=== PATIENT | female | born 1950 | race Caucasian/White ===

== ENCOUNTER 2017-01-29 14:12 | Inpatient (IN) | payer OTHER ==
--- NOTE | ~2017-01-29 | CT113 ---
[facility] A Service [facility] RADIOLOGY TEXT RESULTS PATIENT: SERGIO DHILLON LOCATION: [facility] 224 : 52 UNIT #: [id number] AGE: [address]: Victor Manuel Begum MD SEX: F ORDER DR: [id number] [facility] [address] [facility]. [place], [place] [address] [id number] I MR#: [id number] Acc #: [id number] NAME: SERGIO DHILLON. : 1950 SEX: F STUDY DATE/TIME: 01/31/2017 12:50 UNIT: [facility] ROOM: [facility] STUDY DESCRIPTION: CT Sinuses Wo Contrast Attending Physician: Victor Manuel Begum M.D. Ordering Physician: Victor Manuel Begum M.D. Primary Care Physician: Santiago Zelaya M.D. MEDICAL IMAGING REPORT This report is preliminary unless electronic signature is present EXAM Sinus CT. HISTORY Shortness of breath the head congestion for the past 3 days. Sinusitis. TECHNIQUE Thin section axial images were obtained through the sinuses and evaluated at bone window with multiplanar reformats. FINDINGS Mucosal thickening is seen in the ethmoid air cells bilaterally. No sinus air fluid levels are seen. The other sinuses are clear. The ostiomeatal complex is narrowed or obstructed by the mucosal disease on both sides. There is a small Lupe cell on the right contributing to ostiomeatal narrowing. The septum deviates to the left. IMPRESSION Chronic ethmoid sinusitis with bilateral ostiomeatal obstruction as described above. Septal deviation to the left. No sinus air fluid levels are seen. Dictated by... Pepe Ta M.D. THIS IS AN ELECTRONICALLY VERIFIED REPORT Pepe Ta M.D. at 02/02/2017 11:00 AM RLF/dillon TD: 02/01/2017 10:22 JOB #: [id number] [facility] A Service [facility] RADIOLOGY TEXT RESULTS PATIENT: SERGIO DHILLON LOCATION: [facility] 224-01 : 52 UNIT #: [id number] AGE: [address]: Victor Manuel Begum MD SEX: F ORDER DR: MEDICAL IMAGING REPORT Page 1 of 1 COPY
--- NOTE | ~2017-01-29 | EKG ---
PATIENT: SERGIO DHILLON UNIT #: [id number] Ventricular Rate: 78 BPM Atrial Rate: 78 BPM P-R Interval: 180 ms QRS Duration: 76 ms Q-T Interval: 352 ms QTC Calculation(Bezet): 401 ms P Cresco: 47 degrees Calculated R Cresco: 59 degrees Calculated T Cresco: 63 degrees Diagnosis Line: Normal sinus rhythm Diagnosis Line: Low voltage QRS Poor R wave progression Diagnosis Line: questionable lead position or body habitus Diagnosis Line: Abnormal ECG Diagnosis Line: When compared with ECG of 30-SEP-2015 13:00, Diagnosis Line: No significant change was found Diagnosis Line: Confirmed by LISSET MARTELL MD ([id number]) on 02/01/2017 Diagnosis Line: 7:22:05 AM INTERPRETING MD: JAYSHREE SHOOK
--- NOTE | ~2017-01-29 | HP ---
Unit #: [id number] #: [id number] Patient: SERGIO DHILLON [id number] [facility]. [place], [place] [address] [id number] Gemini MR#: [id number] NAME: SERGIO DHILLON. ROOM: 224 Age: 67 Sex: F Admission Date: 01/29/2017 : 1950 Attending Physician: Victor Manuel Begum M.D. Primary Care Physician: Bryson Mcelroy M.D. HISTORY AND PHYSICAL HISTORY OF PRESENT ILLNESS Ms. Dhillon is a 67-year-old white female whom I have seen in the office with a history of asthma/COPD. She has been treated as an outpatient for exacerbation of COPD with inhaled bronchodilators and oral steroids and doxycycline. She states that over the last week she has had increased shortness of breath, wheezing, cough, fevers to 100 and chills. She has also had some mild epistaxis. She sometimes coughs so hard she throws up. She is unaware of any chest pain. She has had no hemoptysis. She presented to the emergency room with audible wheezing and use of accessory muscles and we were called to admit the patient. PAST MEDICAL HISTORY Her past medical history is significant for asthma, hypertension. She has had PFTs done in the office which I think reveal more of a restriction. She has no evidence of interstitial lung disease on chest CT scan. She has recently stopped smoking, two days ago. She is maintained on Chantix. She has a history of hypertension. She has a history of BHAVANI although she is noncompliant with CPAP. PAST SURGICAL HISTORY Appendectomy, knee arthroscopy, left hand surgery. FAMILY HISTORY Positive for hypertension. SOCIAL HISTORY As noted, stopped smoking two days ago, is maintained on Chantix, no alcohol or drug abuse. ALLERGIES None known. HOME MEDICINES 1. Advair 250/50. 2. Combivent. 3. Lisinopril. 4. Norvasc. 5. Flonase. REVIEW OF SYMPTOMS CONSTITUTIONAL: Has had fevers, chills. HEENT: Has had some rhinorrhea, nasal congestion. PULMONARY: As noted. Unit #: [id number] #: [id number] Patient: SERGIO DHILLON CARDIAC: No chest pain. GASTROINTESTINAL: Did have some vomiting, some nausea. GENITOURINARY: No hematuria or dysuria. ENDOCRINE: No polyuria or polydipsia. HEMATOLOGIC: No easy bruising or bleeding. SKIN: No rash. NEUROLOGIC: No unilateral weakness or numbness. Does have a history of obstructive sleep apnea, not on CPAP. PHYSICAL EXAMINATION GENERAL: White female, obese, no distress presently, does have audible wheezing. VITAL SIGNS: Blood pressure is 122/68. Pulse is 68. Respiratory rate 20. Afebrile. BMI is 33. Weight 192. HEENT: Normocephalic and atraumatic. Pupils equal, round and reactive. Sclerae nonicteric. Nasal passages patent. Posterior pharynx Mallampati IV. Dentures in place. NECK: Supple. Trachea midline. No cervical or supraclavicular lymphadenopathy. LUNGS: Reveal expiratory and inspiratory wheezes bilaterally. CARDIAC: Regular rate and rhythm. Could not appreciate murmur, rub or gallop. ABDOMEN: Nontender, bowel sounds present, no hepatosplenomegaly. EXTREMITIES: Without cyanosis, clubbing or edema. NEUROLOGIC: Awake, alert and oriented x3. Cranial nerves intact. Muscle strength symmetric bilaterally. Affect calm. SKIN: Warm and dry. DIAGNOSTIC STUDIES LABORATORY: Chemistry is reviewed, sodium 131, potassium 3.5, glucose 133. BNP is 9. Coags normal. White blood cell count 12,800 and hematocrit 43.5, platelet count normal. Influenza A and B negative. IMPRESSION 1. Acute exacerbation of chronic obstructive pulmonary disease, failure to respond to outpatient treatment. 2. Possible pneumonia with increased interstitial markings. I have reviewed the x-ray. It is certainly not very impressive. No evidence of congestive heart failure with normal BNP. 3. Tobacco abuse. 4. Hypertension. 5. Obstructive sleep apnea, noncompliant with CPAP. PLAN Will treat with inhaled bronchodilators, IV Solu-Medrol, cover with antibiotics for community-acquired pneumonia. Will recheck chest x-ray in the morning. Consider a viral panel and Strep and Legionella studies if chest x-ray actually reveals worsening infiltrates. I would also recommend and funeral pre arrangement counselor smoking cessation. Will need outpatient evaluation of obstructive sleep apnea again. Would recommend DVT prophylaxis. Further recommendations pending this. Dictated by Santiago Zelaya M.D. Unit #: [id number] #: [id number] Patient: SERGIO DHILLON B LPM/cf TD: 01/29/2017 19:12 JOB #: [id number] HISTORY AND PHYSICAL X Santiago Zelaya MD X HISTORY AND PHYSICAL
--- NOTE | ~2017-01-29 | DS ---
Unit #: [id number] #: [id number] Patient: SERGIO DHILLON [id number] [address] [id number] I MR#: [id number] NAME: SERGIO DHILLON. ROOM: 224 Age: 67 Sex: F Admission Date: 01/29/2017 : 1950 Discharge Date: 02/03/2017 Attending Physician: Victor Manuel Begum M.D. Primary Care Physician: Santiago Zelaya M.D. DISCHARGE SUMMARY DISCHARGE DIAGNOSES 1. Acute exacerbation chronic obstructive pulmonary disease. 2. Acute hypoxemic respiratory failure. 3. Upper respiratory infection with chronic sinusitis. 4. Tobacco abuse. 5. Obstructive sleep apnea, intolerant to CPAP. 6. Hypertension. DISCHARGE MEDICATIONS Neurontin 300 mg daily; BuSpar 15 mg b.i.d.; lisinopril 20 mg daily; Zithromax 500 daily for 4 days; ibuprofen 200 mg b.i.d. as needed; Chantix 1 mg b.i.d.; Combivent inhaler q.i.d.; Advair 250/50 one inhalation b.i.d.; prednisone 40 mg for four days, decreased by 10 mg every four days until off; Flonase 2 sprays each nostril daily; Afrin nasal spray b.i.d. as needed. Follow up in my office in 1 to 2 weeks. HOSPITAL COURSE A 67-year-old white female who was admitted with exacerbation of COPD/asthma exacerbation with failure to respond to outpatient treatment. On admission, her BMP was unremarkable, glucose was 133, sodium was 131. Procalcitonin was 0.05. BNP was 9. Coags were normal. [place] [address], hematocrit was 43.5, platelet count was normal. Influenza A and B were negative. Strep screen was negative. Chest x-ray was read by Radiology as showing normal heart with slightly increased interstitial markings compared to 10/30/2015. She was admitted and started on inhaled bronchodilators, IV Solu-Medrol, covered with antibiotics. It was really not thought, but there were significant infiltrates, but BNP was normal and procalcitonin was normal, so it was felt that this does not represent pneumonia or CHF. She responded to treatment with significant improvement in her wheezing. Her oxygenation improved. Ambulatory pulse oximetry prior to discharge showed no desaturations less than 90%. She will be discharged home on the above-mentioned medications. Follow up in the office in 1 week. She did have a sinus x-rays done due to nasal congestion. There was chronic ethmoid sinusitis with bilateral ostiomeatal obstruction. Septal deviation to the left, no air-fluid levels were seen. She was treated with Afrin and Flonase with improvement. Dictated by... Santiago Zelaya M.D. CHELSEY/kiarra Unit #: [id number] #: [id number] Patient: SERGIO DHILLON Dragan TD: 02/04/2017 05:46 JOB #: [id number] DISCHARGE SUMMARY Page 1 of 1 X Santiago Zelaya MD X DISCHARGE SUMMARY
--- NOTE | ~2017-01-29 | CR72 ---
[facility] A Service of [facility] & [facility] RADIOLOGY TEXT RESULTS PATIENT: SERGIO DHILLON LOCATION: [address] [place] [address] : 52 UNIT #: [id number] AGE: [address]: Victor Manuel Begum MD SEX: F ORDER DR: [id number] [facility] [address] [place], [place] [address] [id number] I MR#: [id number] Acc #: [id number] NAME: SERGIO DHILLON. : 1950 SEX: F STUDY DATE/TIME: 01/29/2017 12:43 UNIT: [facility] ROOM: [id number] STUDY DESCRIPTION: CR Chest Single View Portable Attending Physician: Victor Manuel Begum M.D. Ordering Physician: Nichelle Beebe M.D. Primary Care Physician: Bryson Mcelroy M.D. MEDICAL IMAGING REPORT This report is preliminary unless electronic signature is present EXAM Chest, portable, 01/29/2017, 1243 hours. CLINICAL HISTORY 67-year-old with complaint of shortness of air for 1 week worsening over the past 3 days. Cough and congestion. COMPARISON CT chest 04/21/2016 and chest x-ray 09/30/2015. FINDINGS Portable upright chest demonstrates normal heart size with tortuous atherosclerotic aorta, previously demonstrated to be ectatic. Lungs are well expanded. There is increase in the interstitial markings diffusely representing a change from 09/30/2015. This could represent mild interstitial edema or interstitial pneumonitis. No effusions are seen. IMPRESSION Stable normal heart size with increase in interstitial markings in the lungs diffusely as compared to 09/30/2015. This could represent chronic interstitial change or fibrosis. Acute interstitial edema or interstitial pneumonitis cannot be excluded. There are no pleural effusions. Dictated by... Belén Ceja M.D. THIS IS AN ELECTRONICALLY VERIFIED REPORT Belén Ceja M.D. at 01/29/2017 6:17 PM SHAUN/dave TD: 01/29/2017 16:33 [facility] A Service of [facility] & [facility] RADIOLOGY TEXT RESULTS PATIENT: SERGIO DHILLON LOCATION: [place] [address] : 52 UNIT #: [id number] AGE: [address]: Victor Manuel Begum MD SEX: F ORDER DR: JOB #: [id number] MEDICAL IMAGING REPORT COPY
[2017-01-29 13:07] LABS: POC - CKMB <1.0 ng/mL (0.0-7.9); POC - TROPONIN <0.05 ng/mL (<=0.05)
[2017-01-29 13:17] LABS: BASOPHIL% 0.3 % (0-2.5); EOSINOPHIL# 0.2 X10e3 (0-0.7); EOSINOPHIL% 1.3 % (0.0-7.0); HEMATOCRIT 43.5 % (35.0-45.0); HEMOGLOBIN 14.4 gm/dL (12.0-16.0); LYMPHOCYTE# 2.6 X10e3 (1.0-3.5); LYMPHOCYTE% 20.1 % (17.0-45.0); MEAN CELL VOLUME 86.9 FL (83-96); MEAN CORPUSCULAR HEMOGLOBIN 28.7 PG (28-34); MEAN CORPUSCULAR HGB CONC 33.1 g/dL (30-36); MEAN PLATELET VOLUME 7.9 FL (6.5-11.5); MONOCYTE% 7.7 % (3.0-12.0); NEUTROPHIL% 70.6 % (40-75); PLATELET COUNT 272 X10e3 (140-420); RED CELL DISTRIBUTION WIDTH 14.8 % (11.0-15.5); WHITE BLOOD COUNT 12.8 X10e3 (4.0-10.5)
[2017-01-29 13:18] LABS: DIFF IND NO
[2017-01-29 13:28] LABS: INFLUENZA A NEG (NEG); INFLUENZA B NEG (NEG)
[2017-01-29 13:32] LABS: INR 0.9; PROTHROMBIN TIME (PATIENT) 9.7 SECONDS (9.6-11.5)
[2017-01-29 13:40] LABS: ALBUMIN SERUM 4.1 g/dL (3.5-5.0); ALKALINE PHOSPHATASE 66 U/L (32-92); ALT (SGPT) 16 U/L (10-40); AST (SGOT) 16 U/L (10-42); BILIRUBIN, DIRECT 0.2 mg/dL (0.0-0.2); BILIRUBIN,INDIRECT 0.8 mg/dL (0.0-0.9); BLOOD UREA NITROGEN 12 mg/dL (9-23); CARBON DIOXIDE 26 mmol/L (22-31); CHLORIDE 102 mmol/L (100-111); CREATININE SERUM 0.8 mg/dL (0.6-1.4); GLOM FILT RATE Estimated ABOVE60 mL/min (>60); GLUCOSE FASTING 133 mg/dL (70-110); POTASSIUM 3.5 mmol/L (3.5-5.1); PROTEIN TOTAL SERUM 7.3 g/dL (6.0-8.3); SODIUM 131 mmol/L (135-145)
[~2017-01-29 14:12] MED LIST: ACETAMINOPHEN PO; ADVAIR 250-501 EACH; ADVAIR 250-501 EACH IN; ADVAIR 2501 DISK W/D PO; ALBUTEROL MININEB NEB; ALBUTEROL17 GM INH; ALLEGRA PO; ALLERGY RELIEF10 M1 PO; AUGMENTIN PO; AUGMENTIN875 M1 PO; BACTRIM DS TABL1 TA1 PO; BENZONATATE PO; BUSPAR30 MG PO; BUSPIRONE HCL7.5 MG PO; CHANTIX1 DOSE-PAC; CLARITIN10 M3 PO; COMBIVENT INH14.7 GM INH; COMBIVENT MININEB NEB; COMBIVENT RESPIM4 GM IH; FLONASE 0.05% N16 GM; FLONASE16 GM; GUAIFENESIN LA600 M1 PO; HYDROCODON-ACE1 EAC1 PO; IBUPROFEN PO; IBUPROFEN600 MG PO; IBUPROFEN800 MG PO; K-DUR20 ME1 PO; KETOPROFEN PO; LEVAQUIN PO; LISINOPRIL-HCTZ1 T15 PO; LISINOPRIL-HCTZ1 T17 PO; LISINOPRIL20 MG PO; MELOXICAM15 MG PO; MOBIC15 MG PO; MOTION SICKNESS25 M4 PO; NEURONTIN300 MG PO; NORVASC PO; ORUDIS75 M1 DOB; PHENERGAN25 M1 DOB; PREDNISONE PO; PROVENTIL INH0.5 ML NEB; PYRIDIUM100 MG PO; SINGULAIR PO; SYMBICORT 80/46.9 G1 INH; TRICOR145 MG PO; ULTRAM PO; ZESTORETIC 20/21 TAB PO; ZITHROMAX PO; ZOFRAN ODT4 MG PO; ZOFRAN ODT4 MG/UDTAB PO
[2017-01-29] MEDS ORDERED: LISINOPRIL20 MG PO (17:05)
[2017-01-29] MEDS ORDERED: BUSPAR30 MG PO (17:05)
[2017-01-29] MEDS ORDERED: GABAPENTIN300 M2 PO (17:06)
[2017-01-29] MEDS ORDERED: CHANTIX1 MG SL (17:07)
[2017-01-29] MEDS ORDERED: IBUPROFEN200 M1 PO (17:08)
[2017-01-29] MEDS ORDERED: ADVAIR 250-501 EAC1 INH (17:09)
[2017-01-29] MEDS ORDERED: COMBIVENT RESPIM4 GM INH (17:09)
[2017-01-29] MEDS ORDERED: ALBUTEROL0.83 MG/ML INH (17:10)
[2017-02-03] MEDS ORDERED: ZITHROMAX500 MG PO (11:32)
[2017-02-03] MEDS ORDERED: FLONASE 0.05% N16 G1 (11:33)
[2017-02-03] MEDS ORDERED: AFRIN NASAL SPR15 ML (11:34)
[2017-02-03] MEDS ORDERED: PREDNISONE10 MG/DOSE PO (11:34)
== END 2017-02-03 12:26 | disposition home or self-care (01) | DRG 190 ==
LOC: CED 14:12 → CEDOF 15:20 → C2A 16:54
PROVIDERS: Emergency Medicine
DX: J44.1 Chronic obstructive pulmonary disease with (acute) exacerbation (principal); J96.01 Acute respiratory failure with hypoxia; J45.901 Unspecified asthma with (acute) exacerbation; I10 Essential (primary) hypertension; G47.33 Obstructive sleep apnea (adult) (pediatric); Z91.19 Patient's noncompliance with other medical treatment and regimen; F17.210 Nicotine dependence, cigarettes, uncomplicated; J06.9 Acute upper respiratory infection, unspecified; J32.2 Chronic ethmoidal sinusitis
CPT/HCPCS: 36415; 70486; 71010; 80048; 80076; 82308; 82553; 83880; 84484; 85025; 85610; 87804; 93005; 94640; 94760; 96374; 99285; G0238; J1650; J1956; J2920; J2930

== ENCOUNTER → 2017-03-11 | Outpatient (CLI) | payer OTHER ==
[~2017-03-11] MED LIST changes: +ADVAIR 250-501 EAC1 INH; +AFRIN NASAL SPR15 ML; +ALBUTEROL0.83 MG/ML INH; +CHANTIX1 MG SL; +COMBIVENT RESPIM4 GM INH; +FLONASE 0.05% N16 G1; +GABAPENTIN300 M2 PO; +IBUPROFEN200 M1 PO; +PREDNISONE10 MG/DOSE PO; +ZITHROMAX500 MG PO
--- NOTE | ~2017-03-11 | MR15 ---
[facility] A Service of [facility] RADIOLOGY TEXT RESULTS PATIENT: SERGIO DHILLON LOCATION: [facility] : 52 UNIT #: [id number] AGE: [address]: Jordi Mccollum MD SEX: F ORDER DR: [id number] [facility] [address] [place], [place] [address] [id number] O MR#: [id number] Acc #: [id number] NAME: SERGIO DHILLON : 1950 SEX: F STUDY DATE/TIME: 03/11/2017 13:07 UNIT: [facility] ROOM: STUDY DESCRIPTION: MR Brain W IACS WWo Contrast Attending Physician: Jordi Mccollum M.D. Referring Physician: Jordi Mccollum M.D. Ordering Physician: Jordi Mccollum M.D. Primary Care Physician: Bryson Mcelroy M.D. MRI CENTER REPORT This report is preliminary unless electronic signature is present. EXAM MRI of the brain and IACs with and without contrast. HISTORY Asymmetric sensorineural hearing loss noted approximately 1 month ago. The patient is symptomatic on the right side. TECHNIQUE Multiplanar imaging of the brain was performed with thin detailed sections through the IACs with and without contrast. 18 mL of MultiHance was used. FINDINGS On diffusion weighted images, there is no evidence of abnormal restricted diffusion to suggest a recent infarct. The routine brain images show normal ventricular size. No white matter signal abnormalities are seen. There is no evidence of mass lesion, hemorrhage, or edema. Thin detailed sections through the IACs show no evidence of acoustic neuroma or other cerebellopontine angle mass. The membranous labyrinth has a normal appearance on both sides. Postcontrast imaging shows no abnormal enhancement in the temporal bones on either side. Extraaxial structures are remarkable for inflammatory changes in petrous and mastoid air cells bilaterally. 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 Otherwise, negative MRI of the brain and IACs. Dictated by... Pepe Ta M.D. [facility] A Service of [facility] RADIOLOGY TEXT RESULTS PATIENT: SERGIO DHILLON LOCATION: [facility] : 52 UNIT #: [id number] AGE: [address]: Jordi Mccollum MD SEX: F ORDER DR: THIS IS AN ELECTRONICALLY VERIFIED REPORT Pepe Ta M.D. at 03/12/2017 6:31 PM SHIVA/dave TD: 03/12/2017 11:28 JOB #: [id number] MRI CENTER REPORT Page 1 of 1 COPY
== END | disposition home or self-care (01) ==
LOC: CMRI 12:35
DX: H90.42 Sensorineural hearing loss, unilateral, left ear, with unrestricted hearing on the contralateral side (principal); H70.12 Chronic mastoiditis, left ear
CPT/HCPCS: 70553; A9577

== ENCOUNTER 2017-04-18 09:44 | Emergency (ER) | payer OTHER ==
--- NOTE | ~2017-04-18 | CR282 ---
[facility] A Service of [facility] & [facility] RADIOLOGY TEXT RESULTS PATIENT: SERGIO DHILLON LOCATION: SED : 52 UNIT #: [id number] AGE: [address]: LESTER CHEN SEX: F ORDER DR: [id number] [place] [address] [id number] E MR#: [id number] Acc #: [id number] NAME: SERGIO DHILLON. : 1950 SEX: F STUDY DATE/TIME: 04/18/2017 9:55 UNIT: SED ROOM: STUDY DESCRIPTION: CR Wrist Min 3 View Rt Attending Physician: Lester Chen Aprn Ordering Physician: Lester Chen Aprn Primary Care Physician: Bryson Mcelroy M.D. MEDICAL IMAGING REPORT This report is preliminary unless electronic signature is present. EXAM Right wrist INDICATIONS Right wrist pain after falling today while walking dog. FINDINGS Wrist evaluation in multiple projections shows normal mineralization of the bony structures about the wrist and satisfactory articular relationship of the radius and ulna to the proximal carpal row and of the distal carpal segments to the metacarpal bases. There is no indication of fracture or dislocation, and no soft tissue radiopaque foreign body is present. No congenital defects are apparent. IMPRESSION Normal wrist. Dictated by... Deep Desai M.D. THIS IS AN ELECTRONICALLY VERIFIED REPORT Deep Desai M.D. at 04/19/2017 7:26 AM ZONIA/cristóbal TD: 04/18/2017 16:48 JOB #: [id number] MEDICAL IMAGING REPORT Page 1 of 1
== END 2017-04-18 10:48 | disposition home or self-care (01) ==
LOC: SED 09:44
DX: S63.501A Unspecified sprain of right wrist, initial encounter (principal); I10 Essential (primary) hypertension; J45.909 Unspecified asthma, uncomplicated; J44.9 Chronic obstructive pulmonary disease, unspecified; Z79.899 Other long term (current) drug therapy; W01.198A Fall on same level from slipping, tripping and stumbling with subsequent striking against other object, initial encounter; Y92.9 Unspecified place or not applicable
CPT/HCPCS: 29260; 73110; 99283

== ENCOUNTER → 2017-06-30 | Outpatient (CLI) | payer MEDICARE ==
--- NOTE | ~2017-06-30 | MR11 ---
[facility] A Service of [facility] & [facility] RADIOLOGY TEXT RESULTS PATIENT: SERGIO DHILLON LOCATION: [facility] : 52 UNIT #: [id number] AGE: [address]: Gayathri Villarreal MD SEX: F ORDER DR: [id number] [address] [address] [id number] O MR#: [id number] Acc #: [id number] NAME: SERGIO DHILLON : 1950 SEX: F STUDY DATE/TIME: 06/30/2017 9:28 UNIT: [facility] ROOM: STUDY DESCRIPTION: MR Ankle Wo Contrast Rt Attending Physician: Caron Villarreal M.D. Referring Physician: Caron Villarreal M.D. Ordering Physician: Caron Villarreal M.D. Primary Care Physician: Bryson Mcelroy M.D. MRI CENTER REPORT This report is preliminary unless electronic signature is present. EXAM MRI of the right ankle without contrast HISTORY 67-year-old female right ankle pain for over 6 months. Pain with weightbearing. Evaluate for medial talar OCD lesion. COMPARISON Right ankle films 06/24/2017 FINDINGS Multiplanar multiecho imaging was performed of the right ankle utilizing a high field magnet dedicated protocol. Examination demonstrates a sizable focus of subchondral cystic change along medial talar dome with surrounding marrow edema. The area of cystic change measures approximately 11 mm medial to lateral x 19 mm AP dimension x about 12 mm in maximum depth. 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 There is surrounding marrow edema which may imply active process. There may be minimal subchondral collapse but no evidence of a loose body or in situ loose fragment. No joint effusion. Subtalar joint unremarkable. Susceptibility artifact is seen within the midfoot related to fixation instrumentation. Ankle tendons appear normal. The ankle ligaments appear intact. Sinus tarsi, tarsal tunnel and plantar fascia unremarkable. Intrinsic foot musculature appears normal. IMPRESSION Sizeable osteochondral lesion medial talar dome measuring approximately 11 x 12 x 19 mm. This is surrounded by a moderate amount of marrow edema suggesting an active process. There may be minimal flattening of the medial talar dome but no significant collapse of the talar dome and no evidence of an in situ fragment or loose body. No joint effusion. Dictated by... [facility] A Service of [facility] RADIOLOGY TEXT RESULTS PATIENT: SERGIO DHILLON LOCATION: [facility] : 52 UNIT #: [id number] AGE: [address]: Gayathri Villarreal MD SEX: F ORDER DR: Ramesh Khan M.D. THIS IS AN ELECTRONICALLY VERIFIED REPORT Ramesh Khan M.D. at 07/01/2017 4:04 PM Tommy TD: 07/01/2017 11:19 JOB #: [id number] MRI CENTER REPORT Page 1 of 1
== END | disposition home or self-care (01) ==
LOC: SMRI 09:04
DX: M93.271 Osteochondritis dissecans, right ankle and joints of right foot (principal); M25.871 Other specified joint disorders, right ankle and foot
CPT/HCPCS: 73721